=== PATIENT | female | born 1980 | race Caucasian/White ===

== ENCOUNTER 2023-04-07 14:02 | Emergency (ER) | payer OTHER ==
[~2023-04-07] VITALS: Ht 167.6 cm; Wt 65.3 kg
[2023-04-07 14:36] VITALS: BP 143/90; PULSE 91; RESP 18; TEMP 98; O2SAT 99
[2023-04-07] MEDS ORDERED: BACITRACIN OINT 500 UNITS/GM PKT TP ONE (14:40)
[2023-04-07] MEDS ORDERED: KETOROLAC 30 MG/ML VIAL IM ONE (14:40)
[2023-04-07] MEDS ORDERED: LIDOCAINE OINTMENT 5% 35 GM TUBE TP ONE (14:50)
--- NOTE | 2023-04-07 15:12 | NUR ---
ASSUMED CARE , PT CRYING C/O SEVERE PAIN TO LT HAND [address] DEG[address] BURN,+ BLANCHING BLISTERS ON FINGER TIPS.
--- NOTE | 2023-04-07 15:14 | NUR ---
MEDS FOR PAIN GIVEN PRESCRIBED
[2023-04-07] MEDS ORDERED: BACI-418 TP (15:31)
[2023-04-07] MEDS ORDERED: ACET-10509 PO (15:31)
[2023-04-07] MEDS ORDERED: IBUP-2213 PO (15:31)
[2023-04-07] MEDS ORDERED: ACET-8905 PO (15:57)
[2023-04-07 16:00] VITALS: BP 143/90; PULSE 91; RESP 18; TEMP 98; O2SAT 99
--- NOTE | 2023-04-07 16:00 | NUR ---
PER BRIANNA CORNEJO, PT WAS SEEN/EVALUATED/DISCHARED BY HER. EMT TO PROVIDE DRESSING APPLICATION.
--- NOTE | 2023-04-07 17:25 | NUR ---
petroleum jelly, non adherent and roll gauze applied to L hand fingertips x 5.
== END 2023-04-07 16:00 | disposition home or self-care (01) ==
LOC: MED 14:02
DX: T23.152A Burn of first degree of left palm, initial encounter (principal); T31.0 Burns involving less than 10% of body surface; X08.8XXA Exposure to other specified smoke, fire and flames, initial encounter; Y93.89 Activity, other specified; Y92.89 Other specified places as the place of occurrence of the external cause; Y99.8 Other external cause status
CPT/HCPCS: 16020; 81025; 96372; 99283; J1885

== ENCOUNTER 2024-01-13 03:54 | Emergency (ER) | payer OTHER ==
[~2024-01-13] VITALS: Ht 167.6 cm; Wt 63.5 kg
[~2024-01-13 03:54] MED LIST: ACET-10509 PO; ACET-8905 PO; BACI-418 TP; IBUP-2213 PO
[2024-01-13 03:58] VITALS: BP 133/88; PULSE 78; RESP 17; TEMP 98; O2SAT 98
[2024-01-13] MEDS ORDERED: ALUMINUM HYD/MAG/SIMETHICONE 30 ML UDC ONE ×2 (05:09→05:39)
[2024-01-13] MEDS ORDERED: FAMOTIDINE 20 MG TAB ONE ×2 (05:09→05:40)
[2024-01-13] MEDS ORDERED: ONDANSETRON 4 MG ODT ONE (05:10)
[2024-01-13] MEDS ORDERED: LORazepam 1 MG TAB ONE (05:11)
[2024-01-13 10:12] LABS: BASOPHILS # (AUTO) 0.1 K/uL (0.00-0.22); BASOPHILS % (AUTO) 0.7 % (0.0-2.0); EOSINOPHILS # (AUTO) 0.1 K/uL (0-0.4); EOSINOPHILS % (AUTO) 1.4 % (0.0-4.0); HEMATOCRIT 39.7 % (36-48); HEMOGLOBIN 13.5 g/dL (12.0-16.0); LYMPHOCYTES # (AUTO) 2.8 K/uL (2.5-16.5); LYMPHOCYTES % (AUTO) 32.7 % (20.5-51.1); MEAN CORPUSCULAR HEMOGLOBIN 29 pg (27-31); MEAN CORPUSCULAR HGB CONC 34 g/dL (33-37); MEAN CORPUSCULAR VOLUME 83.8 fL (80-94); MONOCYTES # (AUTO) 0.4 K/uL (0.8-1.0); MONOCYTES % (AUTO) 4.4 % (1.7-9.3); NEUTROPHILS # (AUTO) 5.3 K/uL (1.8-7.7); NEUTROPHILS % (AUTO) 60.8 % (42.2-75.2); PLATELET COUNT (AUTO) 266 K/uL (140-450); RED BLOOD CELL COUNT(AUTO) 4.74 MIL/uL (4.20-5.40); RED CELL DISTRIBUTION WIDTH 13.7 % (11.6-13.7); WHITE BLOOD COUNT (AUTO) 8.7 K/uL (4.8-10.8)
[2024-01-13 11:28] LABS: ANION GAP 13.7 (8-16); CALCIUM 9.2 mg/dL (8.5-10.1); CARBON DIOXIDE 28.4 mmol/L (21-32); POTASSIUM 4.1 mmol/L (3.5-5.1)
[2024-01-13 11:29] LABS: CREATININE 0.8 mg/dL (0.6-1.3)
[2024-01-13 11:56] LABS: TOTAL BILIRUBIN 0.5 mg/dL (0.0-1.0)
[2024-01-13 11:57] LABS: ALANINE AMINOTRANSFERASE 18 U/L (12-78); ALBUMIN 4.4 g/dL (3.4-5.0); ALKALINE PHOSPHATASE 97 U/L (50-136); ASPARTATE AMINOTRANSFERASE 8 U/L (15-37); TOTAL PROTEIN, SERUM 7.8 g/dL (6.4-8.2)
[2024-01-13 12:18] LABS: BILIRUBIN,DIRECT 0.1 mg/dL (0.0-0.3)
== END 2024-01-13 07:00 | disposition home or self-care (01) ==
LOC: MED 03:54
DX: R07.81 Pleurodynia (principal); R10.13 Epigastric pain; K21.9 Gastro-esophageal reflux disease without esophagitis; F41.9 Anxiety disorder, unspecified
CPT/HCPCS: 36415; 71045; 80048; 80076; 81025; 84484; 85025; 85379; 93005; 99285; Q0162

== ENCOUNTER 2024-07-20 18:16 | Emergency (ER) | payer OTHER ==
[~2024-07-20] VITALS: Ht 167.6 cm; Wt 65.8 kg
[~2024-07-20 18:16] MED LIST changes: -ACET-10509 PO; +ACET500T99 PO
[2024-07-20 18:37] VITALS: BP 139/85; PULSE 77; RESP 18; TEMP 98.6; O2SAT 95
[2024-07-20] MEDS: KETOROLAC 30 MG/ML VIAL IVP ONE (19:05)
[2024-07-20 19:20] LABS: BASOPHILS # (AUTO) 0.1 K/uL (0.00-0.22); BASOPHILS % (AUTO) 0.6 % (0.0-2.0); EOSINOPHILS % (AUTO) 0.1 % (0.0-4.0); HEMATOCRIT 42.7 % (36-48); HEMOGLOBIN 14.3 g/dL (12.0-16.0); LYMPHOCYTES # (AUTO) 1.4 K/uL (2.5-16.5); LYMPHOCYTES % (AUTO) 11.4 % (20.5-51.1); MEAN CORPUSCULAR HEMOGLOBIN 29 pg (27-31); MEAN CORPUSCULAR HGB CONC 33 g/dL (33-37); MEAN CORPUSCULAR VOLUME 85.6 fL (80-94); MONOCYTES # (AUTO) 0.4 K/uL (0.8-1.0); MONOCYTES % (AUTO) 3.7 % (1.7-9.3); NEUTROPHILS # (AUTO) 10.3 K/uL (1.8-7.7); NEUTROPHILS % (AUTO) 84.2 % (42.2-75.2); PLATELET COUNT (AUTO) 306 K/uL (140-450); RED BLOOD CELL COUNT(AUTO) 4.98 MIL/uL (4.20-5.40); RED CELL DISTRIBUTION WIDTH 14.2 % (11.6-13.7); WHITE BLOOD COUNT (AUTO) 12.2 K/uL (4.8-10.8)
[2024-07-20 19:33] LABS: ANION GAP 10.6 (8-16); CALCIUM 8.8 mg/dL (8.5-10.1); CARBON DIOXIDE 31.1 mmol/L (21-32); CREATININE 0.8 mg/dL (0.6-1.3); POTASSIUM 3.7 mmol/L (3.5-5.1)
[2024-07-20] MEDS: NACL 0.9% 1,000 ML IV ONE (19:34)
[2024-07-20] MEDS: ONDANSETRON 4 MG/2 ML VIAL IVP ONE (19:46)
[2024-07-20 19:58] LABS: ALBUMIN 4.1 g/dL (3.4-5.0); BILIRUBIN,DIRECT 0.1 mg/dL (0.0-0.3); TOTAL BILIRUBIN 0.6 mg/dL (0.0-1.0); TOTAL PROTEIN, SERUM 7.7 g/dL (6.4-8.2)
[2024-07-20] MEDS ORDERED: ONDA-188 SL (20:37)
[2024-07-20 21:15] VITALS: BP 110/66; PULSE 79; RESP 14; TEMP 98.1; O2SAT 99
== END 2024-07-20 21:15 | disposition home or self-care (01) ==
LOC: MED 18:16
DX: A08.4 Viral intestinal infection, unspecified (principal); R03.0 Elevated blood-pressure reading, without diagnosis of hypertension; Z79.899 Other long term (current) drug therapy
CPT/HCPCS: 36415; 80048; 80076; 83690; 84703; 85025; 96361; 96374; 99283; J2405; J7030